=== PATIENT | male | born 1995 | race Caucasian/White ===

== ENCOUNTER 2017-07-16 15:44 | Emergency (ER) | payer OTHER ==
[~2017-07-16 15:44] MED LIST: AEROMIS4 INH; VENTAER INH
[2017-07-16] MEDS ORDERED: IOHEXOL 350 MG/ML 10 ML VIAL (for RAD DIAG) IVCONTRAST ONE (15:45)
[2017-07-16 15:46] VITALS: BP 140/97; PULSE 69; RESP 15; TEMP 98.2; O2SAT 98
--- NOTE | 2017-07-16 16:27 | PD ---
Physical Exam Date Seen by Provider: Jul 16, 2017 Time Seen by Provider: 16:25 Narrative 22 yo male here for chest pain and SOB. Mid chest since last night. Nothing makes it better. pain is 6/10. Worst with excertion. History of asthma. No allergies. No fevers, chills or sweats. Vitals stable in triage. Awaiting bed placement. Data Data Last Documented VS Vital Signs Date Time Temp Pulse Resp B/P (MAP) Pulse Ox O2 Delivery O2 Flow Rate FiO2 07/16/17 15:46 98.2 69 15 140/97 (111) 98 MDM Medical Record Reviewed: Yes Supervised Visit with AGATHA: Lukasz Cervantes Jul 16, 2017 16:27
--- NOTE | 2017-07-16 17:13 | RADRPT ---
EXAM DATE/TIME: 07/16/2017 16:37 [facility] COMPARISON: CHEST PA & LAT, September 25, 2014, 18:48. INDICATIONS : Chest pain and short of breath. MEDICAL HISTORY : Asthma. SURGICAL HISTORY : None. ENCOUNTER: Initial ACUITY: 1 day PAIN SCORE: 7/10 LOCATION: Bilateral chest FINDINGS: PA and lateral views of the chest demonstrate the lungs to be symmetrically aerated without evidence of mass, infiltrate or effusion. The cardiomediastinal contours are unremarkable. Stable mild scolio sis of the thoracic spine. CONCLUSION: 1. No acute cardiopulmonary disease. Efrain Gray MD on July 16, 2017 at 17:11 Board Certified Radiologist. This report was verified electronically.
--- NOTE | 2017-07-16 17:27 | PD ---
HPI Chief Complaint: Chest Pain Time Seen by Provider: 17:06 Travel History International Travel<30 days: No Contact w/Intl Traveler<30days: No Traveled to known affect area: No History of Present Illness HPI This is a 22-year-old male who presents to the emergency department with chest discomfort involving his left breast, stabbing, constant, worse with deep breath that started this morning. Patient says he has had pain like this in the past in the setting of asthma and respiratory infections. He did recently come back from a car ride to [place] which he says was 19 hours long. He denies any fevers or chills. He is otherwise healthy. PFSH Past Medical History Asthma: Yes Diminished Hearing: No Respiratory: Yes (ASTHMA A KID) Tetanus Vaccination: < 5 Years Influenza Vaccination: Yes Past Surgical History Surgical History: No Previous Surgery Social History Alcohol Use: Yes (ocassionally) Tobacco Use: Yes Substance Use: No Allergies-Medications (Allergen,Severity, Reaction): Coded Allergies: No Known Allergies (Unverified , 07/16/17) Reported Meds & Prescriptions Reported Meds & Active Scripts Active No Active Prescriptions or Reported Medications Review of Systems Except as stated in HPI: all other systems reviewed are Neg Physical Exam Narrative GENERAL:Well appearing, no acute distress SKIN: Focused skin assessment warm and dry. HEAD: Atraumatic. Normocephalic. EYES: Pupils equal and round. No injection or drainage. ENT: Moist mucous membranes NECK: Trachea midline. CARDIOVASCULAR: Regular rate and rhythm. No murmur appreciated. RESPIRATORY: Clear to auscultation. Breath sounds equal bilaterally. GASTROINTESTINAL: Abdomen soft, non-tender, nondistended. MUSCULOSKELETAL: No obvious deformities. NEUROLOGICAL: Awake and alert. No obvious cranial nerve deficits. Moving all extremities. PSYCHIATRIC: Appropriate mood and affect; insight and judgment normal. Data Data Last Documented VS Vital Signs Date Time Temp Pulse Resp B/P (MAP) Pulse Ox O2 Delivery O2 Flow Rate FiO2 07/16/17 18:37 17 07/16/17 18:27 97.8 69 114/58 (76) 100 Room Air Orders Orders Chest, Pa & Lat (07/16/17 ) Complete Blood Count With Diff (07/16/17 17:12) Comprehensive Metabolic Panel (07/16/17 17:12) ^ Insert Iv (07/16/17 17:12) D-Dimer (07/16/17 17:12) Electrocardiogram (07/16/17 ) Ibuprofen (Motrin) (07/16/17 17:45) Ct Pulmonary Angiogram (07/16/17 ) Troponin I (07/16/17 17:26) Iohexol 350 Inj (Omnipaque 350 Inj) (07/16/17 15:45) Labs Laboratory Tests Test 07/16/17 17:26 White Blood Count 8.2 TH/MM3 Red Blood Count 4.82 MIL/MM3 Hemoglobin 13.6 GM/DL Hematocrit 40.4 % Mean Corpuscular Volume 83.7 FL Mean Corpuscular Hemoglobin 28.1 PG Mean Corpuscular Hemoglobin Concent 33.6 % Red Cell Distribution Width 13.7 % Platelet Count 183 TH/MM3 Mean Platelet Volume 8.9 FL Neutrophils (%) (Auto) 66.5 % Lymphocytes (%) (Auto) 14.7 % Monocytes (%) (Auto) 17.5 % Eosinophils (%) (Auto) 1.0 % Basophils (%) (Auto) 0.3 % Neutrophils # (Auto) 5.4 TH/MM3 Lymphocytes # (Auto) 1.2 TH/MM3 Monocytes # (Auto) 1.4 TH/MM3 Eosinophils # (Auto) 0.1 TH/MM3 Basophils # (Auto) 0.0 TH/MM3 CBC Comment DIFF FINAL Differential Comment D-Dimer Quantitative (PE/DVT) 0.60 MG/L FEU Blood Urea Nitrogen 10 MG/DL Creatinine 0.92 MG/DL Random Glucose 86 MG/DL Total Protein 8.5 GM/DL Albumin 3.9 GM/DL Calcium Level 9.3 MG/DL Alkaline Phosphatase 111 U/L Aspartate Amino Transf (AST/SGOT) 79 U/L Alanine Aminotransferase (ALT/SGPT) 253 U/L Total Bilirubin 0.5 MG/DL Sodium Level 138 MEQ/L Potassium Level 4.1 MEQ/L Chloride Level 101 MEQ/L Carbon Dioxide Level 30.7 MEQ/L Anion Gap 6 MEQ/L Estimat Glomerular Filtration Rate 103 ML/MIN Troponin I LESS THAN 0.02 NG/ML MDM Medical Decision Making Medical Screen Exam Complete: Yes Emergency Medical Condition: Yes Interpretation(s) afebrile, no tachycardia, mild hypertension no leukocytosis electrolytes are reassuring d-dimer is .6 Last 24 hours Impressions Chest X-Ray 07/16/17 0000 Signed Impressions: Service Date/Time: Sunday, July 16, 2017 16:37 - CONCLUSION: 1. No acute cardiopulmonary disease. Efrain Gray MD CT Angiography 07/16/17 0000 Signed Impressions: Service Date/Time: Sunday, July 16, 2017 18:51 - CONCLUSION: 1. No PE is identified. 2. Pneumomediastinum. The patient's pain is likely related to the pneumomediastinum. 3. Possible 5 mm pulmonary nodule in the right upper lobe. Given the patient's age, patient is at low risk for pulmonary malignancy and no specific followup is needed. Tito Kendrick MD Differential Diagnosis pneumothorax, pulmonary embolism, bronchitis, asthma Narrative Course This is a 22-year-old male who presents to the emergency department with pleuritic chest discomfort this been going on since this morning. He says he has not really been coughing lately and he denies any vomiting immediately prior to the onset of this pain. Chest x-ray was reassuring but I obtained a CT scan due to the patient's mildly elevated d-dimer which demonstrated pneumomediastinum. I suspect this is spontaneous. The patient looks very well. I did discuss with him that if he had all feels worse if he develops fever, increasing shortness of breath or worsening pain he should return to the emergency department at which time we do additional imaging. At this time I think he is appropriate for outpatient management. I told him to rest. Patient expressed understanding. Diagnosis Primary Impression: Pneumomediastinum Patient Instructions: General Instructions Additional Instructions: If you develop severe chest pain, shortness of breath, sweating, lightheadedness , dizziness or difficulty breathing return to the emergency department immediately. Followup with your primary care physician in 2-3 days if your symptoms are not resolved. Med/Other Pt SpecificInfo: No Change to Meds Scripts No Active Prescriptions or Reported Meds Disposition: 01 DISCHARGE HOME Condition: Stable Iliana Castillo MD Jul 16, 2017 17:27
[2017-07-16 17:40] LABS: AUTOMATED NEUTROPHIL # 5.4 TH/MM3 (1.8-7.7); BASOPHIL % 0.3 % (0.0-2.0); EOSINOPHIL # 0.1 TH/MM3 (0-0.4); HEMATOCRIT 40.4 % (39.0-51.0); HEMO FLAGS DIFF FINAL; LYMPH % 14.7 % (9.0-44.0); LYMPHOCYTE # 1.2 TH/MM3 (1.0-4.8); MEAN CELL VOLUME 83.7 FL (80.0-100.0); MEAN CORPUSCULAR HEMOGLOBIN 28.1 PG (27.0-34.0); MEAN CORPUSCULAR HGB CONC 33.6 % (32.0-36.0); MONO % 17.5 % (0.0-8.0); NEUT % 66.5 % (16.0-70.0); PLATELET COUNT 183 TH/MM3 (150-450); RED BLOOD COUNT 4.82 MIL/MM3 (4.50-5.90); RED CELL DISTRIBUTION WIDTH 13.7 % (11.6-17.2); WHITE BLOOD COUNT 8.2 TH/MM3 (4.0-11.0)
[2017-07-16] MEDS ORDERED: IBUPROFEN 600 MG TAB PO ONE (17:45)
[2017-07-16 17:57] LABS: ANION GAP 6 MEQ/L (5-15); AST (GOT) 79 U/L (15-37); BICARBONATE 30.7 MEQ/L (21.0-32.0); BLOOD UREA NITROGEN 10 MG/DL (7-18); CHLORIDE 101 MEQ/L (98-107); GLOMERULAR FILTRATION RATE 103 ML/MIN (>89); POTASSIUM 4.1 MEQ/L (3.5-5.1); SODIUM (NA) 138 MEQ/L (136-145)
[2017-07-16 18:01] LABS: ALKALINE PHOSPHATASE 111 U/L (45-117); ALT (GPT) 253 U/L (12-78); TOTAL BILIRUBIN ADULT 0.5 MG/DL (0.2-1.0)
[2017-07-16 18:27] VITALS: BP 114/58; PULSE 69; RESP 18; TEMP 97.8; O2SAT 100
[2017-07-16 18:37] VITALS: RESP 17
--- NOTE | 2017-07-16 19:26 | RADRPT ---
EXAM DATE/TIME: 07/16/2017 18:51 [facility] COMPARISON: CHEST PA & LAT, July 16, 2017, 16:37. INDICATIONS : Mid sternal chest pain starting last night IV CONTRAST: 50 cc Omnipaque 350 (iohexol) IV RADIATION DOSE: 23.19 CTDIvol (mGy) MEDICAL HISTORY : Asthma SURGICAL HISTORY : None. ENCOUNTER: Initial ACUITY: 1 day PAIN SCALE: 6/10 LOCATION: chest TECHNIQUE: Volumetric scanning of the chest was performed using a pulmonary embolism protocol MIP images were re constructed. Using automated exposure control and adjustment of the mA and/or kV according to patien t size, radiation dose was kept as low as reasonably achievable to obtain optimal diagnostic quality images. DICOM format image data is available electronically for review and comparison. Follow-up recommendations for detected pulmonary nodules are based at a minimum on nodule size and pa tient risk factors according to Fleischner Society Guidelines. FINDINGS: PULMONARY ARTERIES: No filling defects are seen in the pulmonary arteries through the segmental level. LUNGS: There is no consolidation or pneumothorax . There is a potential 5 mm noncalcified pulmonary nodule i n the medial inferior aspect of the right upper lobe. PLEURAE: There is no pleural thickening or pleural effusion. MEDIASTINUM: There is extensive pneumomediastinum stenting from the visualized thoracic inlet/inferior neck region inferiorly to the GE junction. Heart and great vessels demonstrate no acute finding. There is no lym phadenopathy. MUSCULOSKELETAL: No acute abnormality is identified. MISCELLANEOUS: The visualized upper abdominal organs demonstrate no acute abnormality. CONCLUSION: 1. No PE is identified. 2. Pneumomediastinum. The patient's pain is likely related to the pneumomediastinum. 3. Possible 5 mm pulmonary nodule in the right upper lobe. Given the patient's age, patient is at low risk for pulmonary malignancy and no specific followup is needed. Tito Kendrick MD on July 16, 2017 at 19:19 Board Certified Radiologist. This report was verified electronically.
--- NOTE | 2017-07-17 12:29 | EKG ---
Date Performed: 07/16/2017 Time Performed: 17:22:25 PTAGE: 22 years EKG: Sinus arrhythmia BORDERLINE ECG PREVIOUS TRACING : 09/25/2014 18.40 Compared to prior tracing no significant change DOCTOR: Luis Pugh Interpretating Date/Time 07/17/2017 12:28:16
== END 2017-07-16 20:12 | disposition home or self-care (01) ==
LOC: NEPD 15:44
DX: J98.2 Interstitial emphysema (principal); I49.8 Other specified cardiac arrhythmias
CPT/HCPCS: 71020; 71275; 80053; 84484; 85025; 85379; 93005; 99285; Q9967